=== PATIENT | male | born 1970 | race African-American/Black ===

== ENCOUNTER → 2019-01-25 14:24 | Outpatient (CLI) | payer MEDICAID, SELFPAY ==
[2019-01-25 14:35] LABS: Basophils # 0.1 K/mm3 (0-0.2); Basophils % 0.6 % (0.1-2.0); Eosinophils # 0.1 K/mm3 (0.0-0.4); Eosinophils % 1.1 % (0.1-12.0); Hematocrit 46.6 % (42.0-52.0); Hemoglobin 15.7 g/dL (14.1-18.0); Lymphocytes # 2.5 K/mm3 (0.7-4.5); Lymphocytes % 23.5 % (10-50); Mean Corpuscular HGB Conc 33.7 g/dL (31.8-35.4); Mean Corpuscular Hemoglobin 34.1 pg (27.0-31.2); Mean Corpuscular Volume 101.4 fl (80-94); Mean Platelet Volume 8.7 fl (7.4-10.4); Monocytes # 0.6 K/mm3 (0.1-1.0); Monocytes % 5.6 % (1.7-9.3); Neutrophils # 7.4 K/mm3 (1.8-7.8); Neutrophils % 69.2 % (37.0-80.0); Platelet Count 182 K/mm3 (142-424); Red Cell Distribution Width 12.6 % (11.5-17.5); White Blood Count 10.7 K/mm3 (4.8-10.8)
[2019-01-25 16:31] LABS: Alanine Aminotransferase 128 U/L (12-78); Albumin Level 4.2 gm/dL (3.4-5.0); Albumin/Globulin Ratio 0.9 (1.1-1.8); Alkaline Phosphatase 121 U/L (46-116); Anion Gap 15.7 mEq/L (5-15); Aspartate Amino Transferase 135 U/L (15-37); Bilirubin,Total 0.4 mg/dL (0.2-1.0); Blood Urea Nitrogen 12 mg/dL (7-18); Calcium 9.5 mg/dL (8.5-10.1); Carbon Dioxide 26 mmol/L (21.0-32.0); Chloride 103 mmol/L (98-107); Chol/HDL Ratio 2.6 (1-3.5); Cholesterol 178 mg/dL (140-200); Creatinine,Serum 0.96 mg/dL (0.70-1.30); Estimated Glomerular Filt Rate 83 ml/min (>60); GFR (African American) 101 ML/MIN (>60); Globulin 4.6 gm/dl (1.3-3.2); Glucose 104 mg/dL (74-106); HDL Cholesterol 68 mg/dL (27-67); LDL Cholesterol 88 mg/dL (0-130); Potassium 4.7 mmoL/L (3.5-5.1); Sodium 140 mmol/L (136-145); T4 (Thyroxine) 3.7 ug/dl (4.7-13.3); Thyroid Stimulating Hormone 1.87 uIU/ml (0.358-3.740); Total Protein,Serum 8.8 gm/dL (6.4-8.2); Triglycerides 109 mg/dL (30-200); VLDL Cholesterol 22 mg/dL (0-40)
[2019-01-27 10:11] LABS: Hep A Ab, IgM Negative (Negative); Hepatitis B Core Antibody IgM Negative (Negative); Hepatitis B Surface Antigen Negative (Negative)
[2019-01-27 18:07] LABS: Hepatitis C Antibody >11.0 s/co ratio (0.0-0.9); PSA, Free 0.22 ng/mL; Prostate Specific Ag 0.6 ng/mL (0.0-4.0); Vitamin D 25 Hydroxy 26.5 ng/mL (30.0-100.0)
[2019-01-28 17:30] LABS: Vitamin B12 773 pg/mL (232-1245)
[2019-01-28 17:31] LABS: Folate 13.7 ng/mL (>3.0)
[2019-01-31 23:14] LABS: HCV Genotype Charge YES; Hepatitis C Genotype 1a (.)
== END ==
PROVIDERS: Visit Provider Physician Assistant
DX: F41.9 Anxiety disorder, unspecified (principal); K62.5 Hemorrhage of anus and rectum; Z20.5 Contact with and (suspected) exposure to viral hepatitis; R35.0 Frequency of micturition; F10.10 Alcohol abuse, uncomplicated; E55.9 Vitamin D deficiency, unspecified
CPT/HCPCS: 80053; 80061; 80074; 82607; 82652; 82746; 84153; 84154; 84436; 84443; 85025; 87522; 87902

== ENCOUNTER 2020-04-20 11:44 | Emergency (ER) | payer MEDICAID, SELFPAY ==
[2020-04-20 11:47] VITALS: BP 129/93; PULSE 126; RESP 20; O2SAT 99
[2020-04-20 11:55] VITALS: BP 131/93; PULSE 125; RESP 20; TEMP 37.9; O2SAT 99; BMI 21.1
--- NOTE | 2020-04-20 12:01 | XR_ITS ---
PROCEDURE: XR ANKLE RT MIN 3V CLINICAL INDICATION: fall, injury Pain COMPARISON: CR XR FOOT RT MIN 3V from 04/20/2020 FINDINGS: No displaced fractures evident. There is some minimal calcification along the neck of the talus anteriorly and at the tip of the medial malleolus. These could be due to areas of dystrophic calcification. Avulsion injuries are not excluded. Please correlate as the patient's area of pain and tenderness. IMPRESSION: Soft tissue dystrophic calcification versus avulsion fracture at the neck of the talus and at the medial malleolar region otherwise negative Dictated b John Villegas MD 04/21/2020 05:54 John Villegas MD in [place] 04/21/2020 05:54
--- NOTE | 2020-04-20 12:01 | XR_ITS ---
PROCEDURE: XR LUMBAR SPINE 2-3V CLINICAL INDICATION: injury Posttraumatic pain COMPARISON: No exams were available for comparison FINDINGS: Normal alignment. No fracture or dislocation. There are mild endplate hypertrophic changes. Other findings:None. IMPRESSION: No acute findings. Dictated b John Villegas MD 04/21/2020 06:32 John Villegas MD in [place] 04/21/2020 06:32
--- NOTE | 2020-04-20 12:01 | XR_ITS ---
PROCEDURE: XR FOOT RT MIN 3V CLINICAL INDICATION: injury Posttraumatic pain COMPARISON: No exams were available for comparison FINDINGS: No fracture or dislocation. No lytic or blastic change. There is normal mineralization. There is mild hallux valgus with mild osteoarthritis of the 1st MTP joint. Other findings:None. IMPRESSION: Mild hallux valgus with osteoarthritis at the 1st MTP joint. No acute fracture Dictated b John Villegas MD 04/21/2020 05:52 John Villegas MD in [place] 04/21/2020 05:52
[2020-04-20 12:19] VITALS: BP 129/93; PULSE 120; O2SAT 100
--- NOTE | 2020-04-20 12:23 | PC.NURSE ---
pt to x-ray at this time
[2020-04-20 12:30] VITALS: BP 116/79; PULSE 120; RESP 18; O2SAT 97
--- NOTE | 2020-04-20 12:34 | PC.NURSE ---
pt returned from x-ray at this time
[2020-04-20 13:00] VITALS: BP 123/86; PULSE 118; RESP 20; O2SAT 99
--- NOTE | 2020-04-20 13:00 | HMH.EDGENADL ---
ED Disposition Clinical Impression: Contusion and laceration of cerebrum, unspecified, with loss of consciousness of 30 minutes or less, initial encounter Disposition: Home, Self-Care Condition on Discharge: Good Instructions: DI for Acute Pain -- Adult Referrals: Brynn Mckeon PA [Primary Care Provider] - - Critical Care Critical Care Time: No Attestation: On 04/20/20, the high probability of a clinically significant, sudden or life threatening deterioration of the following system(s) required my full and direct attention, intervention and personal management. The time I documented below is in addition to time spent performing reported procedures but includes the following listed in this critical care notation. Medical Decision Making - Medical Records Medical records reviewed: Yes: I reviewed the patient's medical records. - Matt Inquiry Pt receiving controlled substance: No Vital Signs: 04/20/20 11:47 04/20/20 11:55 04/20/20 12:19 Temperature 100.2 F H Temperature Source Oral Pulse Rate [Right Brachial] 126 H 125 H 120 H Respiratory Rate 20 20 Blood Pressure [Right Arm] 129/93 H 131/93 H 129/93 H Blood Pressure Mean [Right Arm] 105 105 105 Blood Pressure Source [Right Arm] Automatic Cuff Automatic Cuff Blood Pressure Position [Right Arm] Sitting Sitting Sitting 02 Sat by Pulse Oximetry 99 99 100 Oxygen Delivery Method Room Air Room Air Room Air 04/20/20 12:30 Temperature Temperature Source Pulse Rate [Right Brachial] 120 H Respiratory Rate 18 Blood Pressure [Right Arm] 116/79 Blood Pressure Mean [Right Arm] 91 Blood Pressure Source [Right Arm] Automatic Cuff Blood Pressure Position [Right Arm] Sitting 02 Sat by Pulse Oximetry 97 Oxygen Delivery Method Room Air - Lab Data Lab results reviewed: Yes: I reviewed the patient's lab results. Orders (Tests/Meds): ORDERS Category Date Time Status Ankle XR -Right minimum 3 Views [XR ankle RT min 3V] Exams 04/20/20 12:01 Taken Stat XR foot RT min 3V Stat Exams 04/20/20 12:01 Taken XR lumbar spine 2-3V Stat Exams 04/20/20 12:01 Taken - Radiology Data #1 Image(s): L-Spine, Ankle, Foot/Toes Preliminary Findings: Normal/NAD General Adult HPI - General Chief complaint: PAIN Stated complaint: AOpossible broken R foot back pain L shoulder pain Time Seen by Provider: 04/20/20 13:00 Mode of Arrival: Wheelchair Limitations: Physical Limitations Description of Symptoms (Recalled from ER Triage Doc. by RN): pt states he slipped and fell on tuesday landing on back and left shoulder and his right foot hit a table. bruising noted to top of right foot, c/o low back and left shoulder pain - History of Present Illness HPI narrative: A 50-year-old male presents emergency department after falling on his porch and kicking some sort of object. He states that his foot kicked the object and since then he has been having some acute pain. Patient also does complain of low back pain as well. Patient rates the pain on both of these injuries as 6 out of 10 and classifies them sharp. He does describe the pain as being intermittent only when exacerbation occurs. He states that the acute exacerbation that causes pain is with movement of his foot and also ambulation same thing for his lower back. Patient does have chronic lower back pain and so this is acute on chronic back pain. He does state alleviation includes rest and elevation with both extremities.Patient denies any recent cough or shortness of breath, patient denies any sore throat or headache, patient denies any loss of taste or smell, patient denies any malaise or fatigue, patient denies any abdominal pain nausea vomiting or diarrhea. - Related Data Home Medications Medication Instructions Recorded Confirmed esomeprazole magnesium 40 mg 40 mg PO DAILY cap 02/28/18 01/25/19 capsule,delayed release Previous Rx's Medication Instructions Recorded hydroxyzin
[2020-04-20 13:14] VITALS: BP 120/87; PULSE 110; RESP 17; TEMP 37.6; O2SAT 100
== END 2020-04-20 13:21 | disposition home or self-care (01) ==
PROVIDERS: Emergency Provider Family Medicine; PCP Physician Assistant
DX: S06.331A Contusion and laceration of cerebrum, unspecified, with loss of consciousness of 30 minutes or less, initial encounter (principal); S90.31XA Contusion of right foot, initial encounter; S40.012A Contusion of left shoulder, initial encounter; W01.10XA Fall on same level from slipping, tripping and stumbling with subsequent striking against unspecified object, initial encounter; Y92.018 Other place in single-family (private) house as the place of occurrence of the external cause; F41.8 Other specified anxiety disorders; F10.10 Alcohol abuse, uncomplicated; F17.210 Nicotine dependence, cigarettes, uncomplicated
CPT/HCPCS: 72100; 73610; 73630; 99283

== ENCOUNTER 2020-05-01 11:48 | Emergency (ER) | payer MEDICAID, SELFPAY ==
[2020-05-01 11:50] VITALS: BP 153/85; PULSE 109; PULSE 117; RESP 16; RESP 18; TEMP 36.9; TEMP 37.2; O2SAT 98; BMI 20.7
--- NOTE | 2020-05-01 11:58 | XR_ITS ---
PROCEDURE: XR FOOT RT MIN 3V CLINICAL INDICATION: pain Posttraumatic pain COMPARISON: CR XR FOOT RT MIN 3V from 04/20/2020 FINDINGS: There is mild hallux valgus with mild osteoarthritic change the 1st metatarsophalangeal joint. Soft tissue swelling is present medially at this area.. No soft tissue gas. There is increasing soft tissue swelling medially. There is vague area of decreased density involving the distal and medial aspect of the head of the 1st metatarsal. Cannot exclude the possibility developing osteomyelitis. Consider MRI for further evaluation. Other findings:None. IMPRESSION: Osteoarthritis with hallux valgus at the 1st MTP joint. There is increasing soft tissue swelling medially. There is vague area of decreased density involving the distal and medial aspect of the head of the 1st metatarsal. Cannot exclude the possibility developing osteomyelitis. Consider MRI for further evaluation. Dictated by: John Villegas MD 05/01/2020 13:30 John Villegas MD in [place] 05/01/2020 13:30
[2020-05-01 12:08] LABS: Basophils # 0.1 K/mm3 (0-0.2); Basophils % 0.7 % (0.1-2.0); Eosinophils # 0.3 K/mm3 (0.0-0.4); Eosinophils % 1.3 % (0.1-12.0); Hematocrit 43.7 % (42.0-52.0); Hemoglobin 14.6 g/dL (14.1-18.0); Lymphocytes # 3.9 K/mm3 (0.7-4.5); Lymphocytes % 20.3 % (10-50); Mean Corpuscular HGB Conc 33.3 g/dL (31.8-35.4); Mean Corpuscular Hemoglobin 34.8 pg (27.0-31.2); Mean Corpuscular Volume 104.3 fl (80-94); Monocytes # 0.6 K/mm3 (0.1-1.0); Monocytes % 2.9 % (1.7-9.3); Neutrophils # 14.5 K/mm3 (1.8-7.8); Neutrophils % 74.8 % (37.0-80.0); Platelet Count 334 K/mm3 (142-424); Red Blood Count 4.19 M/mm3 (4.60-6.20); Red Cell Distribution Width 13.5 % (11.5-17.5); White Blood Count 19.4 K/mm3 (4.8-10.8)
[2020-05-01 12:11] LABS: Chloride 103 mmol/L (98-107); MANUAL DIFFERENTIAL MANUAL DIFFERENTIAL (MANUAL DIFF); Potassium 4.5 mmoL/L (3.5-5.1); Sodium 138 mmol/L (136-145)
[2020-05-01 12:14] LABS: Blood Urea Nitrogen 8 mg/dl (9-20); Creatinine Clearance Estimated 116 mL/min (50-200); Estimated Glomerular Filt Rate 119 ml/min (>60); GFR (African American) 144 ML/MIN (>60)
[2020-05-01 12:15] LABS: Anion Gap 14.5 mEq/L (5-15); Calcium 9.9 mg/dl (8.4-10.2); Carbon Dioxide 25 mmol/L (22.0-30.0); Glucose 136 mg/dl (74-100); Lactic Acid 2.6 mmol/L (0.7-2.1)
--- NOTE | 2020-05-01 12:17 | HMH.EDGENADL ---
ED Disposition Clinical Impression: Cellulitis of right foot, Abscess of right foot Disposition: Home, Self-Care Condition on Discharge: Fair Instructions: DI for Cellulitis -- Adult Prescriptions: Sulfamethoxazole/Trimethoprim [Bactrim DS tablet] 1 each PO BID 10 Days #20 tab Transmission Status: Pending to [id number] Ibuprofen [Ibuprofen 800mg Tablet] 800 mg PO TIDP PRN #20 tab PRN Reason: Moderate Pain Transmission Status: Pending to [id number] cephALEXin [Keflex 500mg Cap] 500 mg PO QID 10 Days #40 cap Transmission Status: Pending to [id number] Referrals: Brynn Mckeon PA [Primary Care Provider] - - Critical Care Critical Care Time: No Attestation: On 05/01/20, the high probability of a clinically significant, sudden or life threatening deterioration of the following system(s) required my full and direct attention, intervention and personal management. The time I documented below is in addition to time spent performing reported procedures but includes the following listed in this critical care notation. Medical Decision Making - Medical Records Medical records reviewed: Yes: I reviewed the patient's medical records. - Matt Inquiry Pt receiving controlled substance: No Vital Signs: 05/01/20 11:50 05/01/20 12:20 05/01/20 12:30 Temperature 98.9 F Temperature Source Oral Pulse Rate [Left Radial] 117 H 100 H 98 H Pulse Rate [Right] 109 H Respiratory Rate 18 18 18 Blood Pressure [Right Arm] 153/85 H 123/81 116/82 Blood Pressure Mean [Right Arm] 107 95 93 Blood Pressure Source [Right Arm] Automatic Cuff Automatic Cuff Automatic Cuff Blood Pressure Position [Right Arm] Sitting Supine Supine 02 Sat by Pulse Oximetry 98 100 99 Oxygen Delivery Method Room Air Room Air Room Air 05/01/20 13:00 Temperature Temperature Source Pulse Rate [Left Radial] 78 Pulse Rate [Right] Respiratory Rate Blood Pressure [Right Arm] 119/82 Blood Pressure Mean [Right Arm] 94 Blood Pressure Source [Right Arm] Automatic Cuff Blood Pressure Position [Right Arm] Sitting 02 Sat by Pulse Oximetry 99 Oxygen Delivery Method Room Air - Lab Data Lab Results 05/01/20 12:00: WBC 19.4 H, RBC 4.19 L, Hgb 14.6, Hct 43.7, MCV 104.3 H, MCH 34.8 H, MCHC 33.3, RDW 13.5, Plt Count 334, MPV 7.0 L, Neut % (Auto) 74.8, Lymph % (Auto) 20.3, Reagan % (Auto) 2.9, Eos % (Auto) 1.3, Baso % (Auto) 0.7, Neut # (Auto) 14.5 H, Lymph # (Auto) 3.9, Reagan # (Auto) 0.6, Eos # (Auto) 0.3, Baso # (Auto) 0.1, Total Counted 100, Neutrophils % (Manual) 74, Lymphocytes % (Manual) 23, Monocytes % (Manual) 2, Eosinophils % (Manual) 1, Platelet Estimate Normal, RBC Morphology Not Reportable, Anisocytosis 1+, Macrocytosis 1+ 05/01/20 12:00: Sodium 138, Potassium 4.5, Chloride 103, Carbon Dioxide 25, Anion Gap 14.5, BUN 8 L, Creatinine 0.70, Estimated Creat Clear 116, Estimated GFR 119, Est GFR ( Amer) 144, Glucose 136 H, Calcium 9.9 05/01/20 12:00: Lactate 2.6 H Result diagrams: 05/01/20 12:00 05/01/20 12:00 Orders (Tests/Meds): ED MEDICATIONS Generic Name Dose Route Start Last Admin Trade Name Freq PRN Reason Stop Dose Admin Ceftriaxone Sodium 1 gm/ 50 mls @ 100 mls/hr 05/01/20 12:30 05/01/20 12:26 Sodium Chloride IV 05/15/20 12:29 100 mls/hr Q24H CRISTAL Administration Protocol Sodium Chloride 1,000 mls @ 999 mls/hr 05/01/20 12:30 Sod Chlor 0.9% 1000ml Bag IV 05/01/20 13:30 .Q1H1M CRISTAL Discontinued Medications Generic Name Dose Route Start Last Admin Trade Name Freq PRN Reason Stop Dose Admin Sodium Chloride 1,000 mls @ 999 mls/hr 05/01/20 12:00 05/01/20 12:04 Sod Chlor 0.9% 1000ml Bag IV 05/01/20 13:00 999 mls/hr .Q1H1M CRISTAL Administration Ketorolac Tromethamine 30 mg 05/01/20 11:58 05/01/20 12:03 Toradol 30mg/Ml Vial IM 05/01/20 11:59 Not Given ONCE ONE Ketorolac Tromethamine 30 mg 05/01/20 12:04 05/01/20 12:04 Toradol 30mg/Ml V
[2020-05-01 12:20] VITALS: BP 123/81; PULSE 100; RESP 18; O2SAT 100
[2020-05-01 12:21] LABS: Anisocytosis 1+; Eosinophils % 1 % (0-3); Lymphocytes % 23 % (10-50); Macrocytosis 1+; Monocytes % 2 % (2-9); Neutrophils % 74 % (42-76); Platelet Estimate Normal; Total Cells Counted 100
[2020-05-01 12:30] VITALS: BP 116/82; PULSE 98; RESP 18; O2SAT 99
[2020-05-01 13:00] VITALS: BP 119/82; PULSE 78; O2SAT 99
[2020-05-01 13:21] VITALS: BP 119/82; PULSE 78; RESP 17; TEMP 37.2; O2SAT 99
[2020-05-01 16:03] LABS: Reflex Lactic Add Lactic Reflex
== END 2020-05-01 13:27 | disposition home or self-care (01) ==
PROVIDERS: Emergency Provider Emergency Medicine; PCP Physician Assistant
DX: L02.611 Cutaneous abscess of right foot (principal); F41.8 Other specified anxiety disorders; F17.210 Nicotine dependence, cigarettes, uncomplicated; Z79.899 Other long term (current) drug therapy
CPT/HCPCS: 73630; 80048; 83605; 85007; 85025; 87040; 96365; 96367; 96375; 99284

== ENCOUNTER → 2020-05-08 15:57 | Outpatient (CLI) | payer MEDICAID, SELFPAY | PROVIDERS: Visit Provider Nurse Practitioner Family | DX: L02.611 Cutaneous abscess of right foot (principal) | CPT/HCPCS: 87070; 87077; 87186; 87205 ==

== ENCOUNTER → 2021-08-18 16:47 | Outpatient (CLI) | payer MEDICAID, SELFPAY | PROVIDERS: Visit Provider Nurse Practitioner Family | DX: Z20.822 Contact with and (suspected) exposure to COVID-19 (principal) | CPT/HCPCS: C9803; U0003; U0005 ==

== ENCOUNTER → 2021-09-16 12:16 | Outpatient (CLI) | payer MEDICAID, SELFPAY | PROVIDERS: PCP Physician Assistant; Visit Provider Nurse Practitioner | DX: U07.1 COVID-19 (principal) | CPT/HCPCS: C9803; U0003; U0005 ==

== ENCOUNTER → 2021-09-22 10:11 | Outpatient (CLI) | payer MEDICAID, SELFPAY | PROVIDERS: Visit Provider Nurse Practitioner | DX: Z20.822 Contact with and (suspected) exposure to COVID-19 (principal) | CPT/HCPCS: C9803; U0003; U0005 ==

== ENCOUNTER → 2021-10-20 15:58 | Outpatient (CLI) | payer MEDICAID, SELFPAY | PROVIDERS: Visit Provider Nurse Practitioner | DX: Z20.822 Contact with and (suspected) exposure to COVID-19 (principal) | CPT/HCPCS: C9803; U0003; U0005 ==

== ENCOUNTER 2022-01-26 21:16 | Emergency (ER) | payer MEDICAID, SELFPAY ==
[2022-01-26 21:30] VITALS: BP 138/55; PULSE 120; RESP 18; TEMP 36.7; O2SAT 99; BMI 23.1
--- NOTE | 2022-01-26 21:38 | HMH.EDMCLR ---
ED Disposition Clinical Impression: Medical clearance for incarceration Disposition: Home, Self-Care Condition on Discharge: Good Instructions: Dos and Don'ts for Prescription Medications Additional Instructions: see pcp for follow up Referrals: Brynn Mckeon PA [Primary Care Provider] - - Critical Care Critical Care Time: No Attestation: On 01/26/22, the high probability of a clinically significant, sudden or life threatening deterioration of the following system(s) required my full and direct attention, intervention and personal management. The time I documented below is in addition to time spent performing reported procedures but includes the following listed in this critical care notation. Medical Decision Making - Medical Records Medical records reviewed: Yes: I reviewed the patient's medical records. - Matt Inquiry Pt receiving controlled substance: No Vital Signs: 01/26/22 21:30 Temperature 98.1 F Temperature Source Oral Pulse Rate [Apical] 120 H Respiratory Rate 18 Blood Pressure [Right Arm] 138/55 L Blood Pressure Mean [Right Arm] 82 Blood Pressure Source [Right Arm] Automatic Cuff Blood Pressure Position [Right Arm] Sitting 02 Sat by Pulse Oximetry 99 Oxygen Delivery Method Room Air Medical Clearance HPI - General Chief complaint: Medical Clearance Stated complaint: Medical ava Time Seen by Provider: 01/26/22 21:38 Mode of Arrival: Ambulatory Source of Information: Patient, Medical Record Limitations: No Limitations Description of Symptoms (Recalled from ER Triage Doc. by RN): Medical clearance. Patient has no medical complaints. - History of Present Illness HPI Narrative: no specific c/o MD complaint: medical clearance requested Traumatic Symptoms: denies traumatic injury Associated Symptoms: denies other symptoms Treatments Prior to Arrival: none Home medications: Previous Rx's Medication Instructions Recorded albuterol sulfate 90 mcg/actuation See Rx Instructions .ROUTE 11/21/20 aerosol inhaler .COMPLEX #18 g hydroxyzine HCl 50 mg tablet 50 mg PO TID #90 tab 05/28/21 Allergies/Adverse reactions: Allergies Allergy/AdvReac Type Severity Reaction Status Date / Time No Known Allergies Allergy Verified 08/18/21 14:55 [facility] History - Hepatitis A Screen Attestation statement:: This patient has been screened for Hepatitis A risk factors. I have reviewed the patient's past medical history: Yes Medical History: Reports:: Anxiety, Depression, Gastrointestinal Bleed, Hepatitis Other Surgeries: Yes: No Previous Surgery, Colonoscopy Amputation: No Fractures: No Comment: Lung biopsy at 12 yo - Social History Smoking Status: Current every day smoker Tobacco Type: cigarettes # Packs/Day (cigarettes): 1 Alcohol Intake: current Alcohol Intake Frequency:: 3 or more drinks per day Substance Use Type: marijuana Occupational Status: employed Housing: apartment - Psychiatric History Pschychiatric History:: Reports:: Anxiety, Depression Family Hx:: Hypertension, Diabetes Comment: mother with Crohn's ROS Obtained: Yes All systems reviewed & no additional complaints - Constitutional Constitutional: Denies fever(s) - Eyes Eyes: Denies change in vision - ENT Ears, Nose, Mouth, and Throat: Denies sore throat - Cardiovascular Cardiovascular: Denies chest pain - Respiratory Respiratory: Denies shortness of breath - Gastrointestinal Gastrointestingal: Denies: abdominal pain - Genitourinary Male Genitourinary: Denies hematuria - Musculoskeletal Musculoskeletal: Denies joint pain - Integumentary/Breasts Skin/Breast: Denies rash - Neurologic Neurologic: Denies seizure-like activity Physical Exam - General General appearance: alert - Head Head exam: normocephalic - Eye Eye exam: Present: PERRL, EOMI. Absent: scleral icterus, nystagmus - ENT ENT exam: Present: mucous membranes moist - Neck Neck exam: Present: tra
[2022-01-26 21:40] VITALS: BP 135/62; PULSE 99; RESP 17; TEMP 36.7; O2SAT 99
== END 2022-01-26 21:41 | disposition home or self-care (01) ==
PROVIDERS: Emergency Provider Emergency Medicine; PCP Physician Assistant
DX: Z02.89 Encounter for other administrative examinations (principal)
CPT/HCPCS: 99282

== ENCOUNTER 2025-07-01 11:03 | Outpatient (CLI) | payer MEDICAID, SELFPAY ==
[2025-07-01 15:03] LABS: Hematocrit 43.0 % (42.0-52.0); Hemoglobin 14.9 g/dL (14.1-18.0); Immature Granulocytes % 0.4 %; Mean Corpuscular HGB Conc 34.7 g/dL (31.8-35.4); Mean Corpuscular Hemoglobin 34.0 pg (27.0-31.2); Mean Corpuscular Volume 98.2 fl (80-94); Nucleated Red Blood Cells % 0 %; Platelet Count 154 K/mm3 (142-424); Red Blood Count 4.38 M/mm3 (4.60-6.20); Red Cell Distribution Width-SD 45.6 fL; White Blood Count 10.3 K/mm3 (4.8-10.8)
[2025-07-01 16:06] LABS: Alanine Aminotransferase 127 U/L (12-78); Albumin Level 4.4 g/dl (3.5-5.0); Albumin/Globulin Ratio 1.4 (1.1-1.8); Alkaline Phosphatase 130 U/L (38-126); Anion Gap 16.5 mEq/L (5-15); Aspartate Amino Transferase 142 U/L (17-59); Bilirubin,Total 0.5 mg/dl (0.2-1.3); Blood Urea Nitrogen 10 mg/dl (9-20); Calcium 9.9 mg/dl (8.4-10.2); Carbon Dioxide 26 mmol/L (22.0-30.0); Chloride 102 mmol/L (98-107); Cholesterol 177 mg/dl (140-200); Creatinine,Serum 0.90 mg/dl (0.66-1.25); Estimated Glomerular Filt Rate 87 ml/min (>60); GFR (African American) 106 ML/MIN (>60); Globulin 3.2 g/dL (1.3-3.2); Glucose 91 mg/dl (74-100); HDL Cholesterol 93 mg/dl (40-60); Potassium 4.5 mmoL/L (3.5-5.1); Sodium 140 mmol/L (136-145); Total Protein,Serum 7.6 g/dl (6.3-8.2); Triglycerides 57 mg/dl (30-150)
[2025-07-01 16:16] LABS: Hepatitis C Ab Qual. W/ RFX REACTIVE (Negative)
[2025-07-02 09:57] LABS: RPR W/RFX Titers Nonreactive (Nonreactive)
[2025-07-02 11:25] LABS: Hepatitis B Surface Antigen Negative (Negative)
== END 2025-07-01 23:59 ==
LOC: LAB.DROPOF 07-03 11:04
PROVIDERS: PCP Student in an Organized Health Care Education/Training Program; Visit Provider Student in an Organized Health Care Education/Training Program
DX: K62.5 Hemorrhage of anus and rectum (principal); B19.20 Unspecified viral hepatitis C without hepatic coma; R94.5 Abnormal results of liver function studies; F41.9 Anxiety disorder, unspecified; Z11.59 Encounter for screening for other viral diseases
CPT/HCPCS: 80053; 80061; 85025; 86592; 86803; 87389; 87522

== ENCOUNTER 2025-07-31 06:56 | Outpatient (CLI) | payer MEDICAID, SELFPAY ==
--- OUTSIDE RECORDS SUMMARY | 2025-07-31 06:58 | XMS_ITS ---
Author Organization Unknown ENCOUNTERS Encounter Performer Location Date Diagnosis Diagnosis Status Emergency [place] [id number] [facility] [address] [place] [address] [id number] [place] *Note: Encounters from your own facility or health system may be excluded. Allergies, Adverse Reactions, Alerts Allergen Type Severity Identification Date Medications Name Date Quantity Days Supplied GPI Number
--- NOTE | 2025-07-31 07:30 | CT_ITS ---
FINAL REPORT TECHNIQUE: Thin section axial images were obtained from the lung apices to the upper abdomen by computed tomography. Reformatted images were obtained and reviewed. This study was performed with techniques to keep radiation doses al low as reasonably achievable (ALARA). Individualized dose reduction techniques using automated exposure control or adjustment of mA and/or kV according to the patient's size were employed. CLINICAL HISTORY: lung cancer screening smoker, 1 ppd x 20 years COMPARISON: None FINDINGS: CHEST CT LOW DOSE 55-year-old male, current smoker, [id number] history. CTDI vol (mGy): 2.90 DLP (mGy-cm): 113.59 There is no axillary adenopathy. There is no mediastinal or hilar mass or adenopathy. The heart is normal in size. There is no pericardial or pleural effusion. Moderate changes of centrilobular emphysema are present. Lung window images demonstrate a loculated appearing lucency in the medial posterior upper right hemithorax, that has an appearance suggestive of a chronic localized pneumothorax, possibly secondary to rupture of a bulla. Limited images of the upper abdomen are unremarkable. IMPRESSION: Lung-RADS category 1S, the S designation for the loculated lucency in the medial upper right hemithorax, that has an appearance suggestive of a chronic localized pneumothorax, possibly secondary to rupture of a bulla. However, an acute pneumothorax is not excluded. Recommend 12 month follow up low dose chest CT. These results were called to office of Dr. Salinas 08/01/2025 at 8:30 AM Reviewed, Interpreted and Dictated by Mustapha Hong MD Transcribed by Cathryn Nelson Authenticated and [facility]
[2025-07-31 08:23] LABS: INR 0.98 (0.9-1.1); Prothrombin Time 10.9 seconds (10.1-12.5)
== END 2025-07-31 23:59 | disposition home or self-care (01) ==
PROVIDERS: PCP Student in an Organized Health Care Education/Training Program; Visit Provider Student in an Organized Health Care Education/Training Program
DX: R91.8 Other nonspecific abnormal finding of lung field (principal); B19.20 Unspecified viral hepatitis C without hepatic coma; Z12.2 Encounter for screening for malignant neoplasm of respiratory organs; F17.210 Nicotine dependence, cigarettes, uncomplicated
CPT/HCPCS: 36415; 71271; 85610; 87902

== ENCOUNTER 2025-08-27 14:47 | Outpatient (CLI) | payer MEDICAID, SELFPAY ==
--- OUTSIDE RECORDS SUMMARY | 2025-08-28 18:17 | XMS_ITS ---
Author Organization Unknown ENCOUNTERS Encounter Performer Location Date Diagnosis Diagnosis Status Emergency [place] [id number] [facility] [address] [place] [address] [id number] [place] *Note: Encounters from your own facility or health system may be excluded. Allergies, Adverse Reactions, Alerts Allergen Type Severity Identification Date Medications Name Date Quantity Days Supplied GPI Number
== END 2025-08-27 23:59 | disposition home or self-care (01) ==
LOC: LAB.DROPOF 08-28 18:16
PROVIDERS: PCP Student in an Organized Health Care Education/Training Program; Visit Provider Student in an Organized Health Care Education/Training Program
DX: I10 Essential (primary) hypertension (principal); Z23 Encounter for immunization